=== PATIENT | female | born 1950 | race Caucasian/White ===

== ENCOUNTER 2018-09-14 17:07 | Emergency (ER) | payer MEDICARE ==
[~2018-09-14] VITALS: Ht 154.9 cm; Wt 49.9 kg
[2018-09-14] MEDS ORDERED: HYDROCODONE/APAP 5-325MG TABLET PO ONE (18:00)
[2018-09-14] MEDS ORDERED: HYDROCODONE/APAP 5-325MG TABLET ONE (18:06)
--- NOTE | 2018-09-14 18:35 | NUR ---
Patient discharged to home in stable conditon with . Written and verbal after care instructions given. Patient verbalizes understanding of instructions. Stressed follow up with pmd/ortho.
== END 2018-09-14 18:37 | disposition home or self-care (01) ==
LOC: ER 17:07
DX: S52.121A Displaced fracture of head of right radius, initial encounter for closed fracture (principal); G56.11 Other lesions of median nerve, right upper limb; Z88.0 Allergy status to penicillin; Z88.6 Allergy status to analgesic agent; W01.0XXA Fall on same level from slipping, tripping and stumbling without subsequent striking against object, initial encounter; Y93.89 Activity, other specified; Y92.89 Other specified places as the place of occurrence of the external cause; Y99.8 Other external cause status
CPT/HCPCS: 73080; A4663